=== PATIENT | male | born 1935 | race Caucasian/White ===

== ENCOUNTER 2016-12-28 07:40 | Outpatient (CLI) | payer MEDICARE, OTHER | END 2016-12-28 07:41 | DX: N18.9 Chronic kidney disease, unspecified (principal); I25.10 Atherosclerotic heart disease of native coronary artery without angina pectoris; I10 Essential (primary) hypertension; E78.5 Hyperlipidemia, unspecified; E55.9 Vitamin D deficiency, unspecified ==

== ENCOUNTER 2017-01-06 15:46 | Emergency (ER) | payer MEDICARE, OTHER | END 2017-01-06 19:28 | disposition home or self-care (01) | DX: R06.00 Dyspnea, unspecified (principal); I25.10 Atherosclerotic heart disease of native coronary artery without angina pectoris; Z98.61 Coronary angioplasty status; Z95.1 Presence of aortocoronary bypass graft; I10 Essential (primary) hypertension; E78.00 Pure hypercholesterolemia, unspecified; I48.91 Unspecified atrial fibrillation ==

== ENCOUNTER 2017-02-08 09:19 | Outpatient (CLI) | payer MEDICARE, OTHER | END 2017-02-08 09:20 | disposition home or self-care (01) | DX: Z12.5 Encounter for screening for malignant neoplasm of prostate (principal) | CPT/HCPCS: 36415; G0103 ==

== ENCOUNTER 2017-06-25 07:33 | Outpatient (CLI) | payer MEDICARE, OTHER ==
[2017-06-25 12:29] LABS: BASOPHILS % (AUTO) 0.5 %; EOSINOPHILS # (AUTO) 0.2 10^3/uL (0.0-0.7); EOSINOPHILS % (AUTO) 2.2 %; HCT - HEMATOCRIT 46.2 % (42.0-52.0); HGB - HEMOGLOBIN 15.6 g/dL (14.0-18.0); LYMPHOCYTES # (AUTO) 1.8 10^3/uL (1.5-3.5); LYMPHOCYTES % (AUTO) 23.1 %; MEAN CORPUSCULAR HEMOGLOBIN 30.4 pg (27.0-31.0); MEAN CORPUSCULAR HGB CONC 33.8 g/dL (32.0-36.0); MEAN CORPUSCULAR VOLUME 89.9 fL (80.0-94.0); MONOCYTES # (AUTO) 0.6 10^3/uL (0.0-1.0); NEUTROPHILS # (AUTO) 5.1 10^3/uL (1.5-6.6); NEUTROPHILS % (AUTO) 66.2 %; RED BLOOD COUNT 5.14 10^6/uL (4.70-6.10); RED CELL DISTRIBUTION WIDTH 14.4 % (12.0-15.0); UNCORRECTED WHITE BLOOD COUNT 7.7 x10^3/uL; WHITE BLOOD COUNT 7.7 x10^3/uL (4.8-10.8)
[2017-06-25 13:06] LABS: ALBUMIN/GLOBULIN RATIO 1.5 (1.0-2.2); BILIRUBIN,TOTAL 0.4 mg/dL (0.2-1.0); BUN - BLOOD UREA NITROGEN 17 mg/dL (6-20); CARBON DIOXIDE - CO2 22 mmol/L (21-32); CHLORIDE 106 mmol/L (101-111); CHOL/HDL RATIO 3.3 (<5.0); CHOLESTEROL 174 mg/dL; CREATININE 1.2 mg/dL (0.6-1.2); GFR - MDRD 58 (>89); GLUCOSE 102 mg/dL (70-100); HDL CHOLESTEROL 52 mg/dL; LDL/HDL RATIO 1.7 (<3.6); POTASSIUM 4.1 mmol/L (3.5-5.0); SODIUM 136 mmol/L (135-145); TOTAL PROTEIN 7.2 g/dL (6.7-8.2); TRIGLYCERIDES 160 mg/dL; VLDL CHOLESTEROL 32 mg/dL
== END 2017-06-25 07:34 ==
LOC: LAB.WCP 07:33
PROVIDERS: ATTEND Family Medicine
DX: E78.5 Hyperlipidemia, unspecified (principal); I25.10 Atherosclerotic heart disease of native coronary artery without angina pectoris
CPT/HCPCS: 36415; 80053; 80061; 85025

== ENCOUNTER 2017-10-04 09:27 | Outpatient (CLI) | payer MEDICARE, OTHER ==
[2017-10-04] MEDS ORDERED: REGADENOSON 0.4 MG/5 ML SYRINGE IVP ONE ×2 (10:20→13:51)
[2017-10-04 17:25] VITALS: BP 122/70
--- NOTE | 2017-10-05 01:38 | Nuclear Medicine Report ---
EXAM: SINGLE-ISOTOPE PHARMACOLOGICAL STRESS TEST WITH ADENOSINE. SINGLE-ISOTOPE AND SAME-DAY REST/STRESS MY OCARDIAL PERFUSION SCANS WITH TOMOGRAPHIC IMAGING, QUANTITATIVE ANALYSIS, WALL MOTION ANALYSIS AND CA LCULATION OF EJECTION FRACTION. EXAM DATE: 10/04/2017 02:36 PM. CLINICAL HISTORY: Chest pain. COMPARISON: None. TECHNIQUE: Following the intravenous administration of 10.1 mCi of Tc-99m sestamibi, a rest myocardia l perfusion scan was done with tomography. Motion correction was applied when appropriate. After a delay of several hours on the same day, a pharmacological stress was performed with the infus ion of 0.4 mg of adenosine. According to protocol, 42.6 mCi of Tc-99m sestamibi was injected for stre ss myocardial perfusion scan. Stress myocardial perfusion was done with tomography without attenuatio n correction. Motion correction was applied when appropriate. Gated tomographic images were obtained for wall motion analysis and computation of left ventricular ejection fraction. FINDINGS: Stress perfusion images demonstrate no fixed or reversible areas of ischemia. Resting wall motion analysis demonstrates normal wall motion. The left ventricular end-diastolic volume is 74 cc. The left ventricular end-systolic volume is 21 cc . The left ventricular ejection fraction is calculated to be 72%. IMPRESSION: 1. No scintigraphic findings to indicate myocardial ischemia. Negative for infarct. 2. Normal left ventricular ejection fraction of 72%. 3. Normal segmental and global wall motion. 4. Normal left ventricular cavity size, no change with stress. [facility] Referring Provider Line: [phone] SITE ID: [id number]
--- NOTE | 2017-10-05 03:38 | CARDIAC PROCEDURE NOTE ---
DATE OF SERVICE: 10/04/2017 00:00:00 [employer] OPERATOR: Shubham Cartwright M.D. PRIMARY CARE PHYSICIAN: Valente Interiano MD PROCEDURE: Pharmacologic stress test. PROCEDURE SYMPTOMS: Exertional chest pain. Previous cardiac procedures have been done. CLINICAL HISTORY: A 81-year-old male with known coronary artery disease. INITIAL RESTING VITAL SIGNS: Blood pressure 122/70, heart rate 66, height 67 inches, weight 185 pound s, BMI 29.0. PROCEDURE AND FINDINGS: The patient's identity and date verified, consent signed, safety stop. Pharmacologic stress testing was performed with Lexiscan at a dose of 0.4 mg over 10 seconds. The hea rt rate increased to 99 beats per minute from the infusion. Blood pressure response was normal during the stress procedure, dropping by 10 points. The patient developed mild infusion-related symptoms, w hich were described as anxiety. The resting ECG demonstrated normal sinus rhythm with a right bundle branch block. Maximum ST segment depression with stress was less than 0.5 mm and upsloping. There was occasional PAC and PVC ectopy. FINAL IMPRESSIONS 1. Negative electrocardiogram for ischemia in the setting of vasodilator stress. 2. Negative stress test for angina. 3. Ectopy is noted. DISCUSSION AND RECOMMENDATIONS: Await myocardial perfusion report. JOB #: [id number] EXT JOB #:[id number]
== END 2017-10-04 09:28 | disposition home or self-care (01) ==
LOC: DI 09:27
PROVIDERS: ATTEND Internal Medicine Cardiovascular Disease
DX: R07.9 Chest pain, unspecified (principal); I25.10 Atherosclerotic heart disease of native coronary artery without angina pectoris; I45.10 Unspecified right bundle-branch block
CPT/HCPCS: 78452; 93017; A9500; J2785

== ENCOUNTER 2017-12-25 07:57 | Outpatient (CLI) | payer MEDICARE, OTHER ==
[2017-12-25 13:30] LABS: ALBUMIN 4.1 g/dL (3.2-5.5); ALBUMIN/GLOBULIN RATIO 1.4 (1.0-2.2); ALKALINE PHOSPHATASE 55 IU/L (42-121); ALT ALANINE AMINOTRANSFERASE 21 IU/L (10-60); AST ASPARTATE AMINOTRANSFERASE 23 IU/L (10-42); BILIRUBIN,TOTAL 0.7 mg/dL (0.2-1.0); BUN - BLOOD UREA NITROGEN 16 mg/dL (6-20); CARBON DIOXIDE - CO2 26 mmol/L (21-32); CHLORIDE 103 mmol/L (101-111); CHOL/HDL RATIO 3.6 (<5.0); CHOLESTEROL 177 mg/dL; CREATININE 1.1 mg/dL (0.6-1.2); GFR - MDRD 64 (>89); GLUCOSE 100 mg/dL (70-100); HDL CHOLESTEROL 49 mg/dL; LDL CHOLESTEROL,CALCULATED 94 mg/dL; LDL/HDL RATIO 1.9 (<3.6); SODIUM 136 mmol/L (135-145); VLDL CHOLESTEROL 34 mg/dL
== END 2017-12-25 07:58 | disposition home or self-care (01) ==
LOC: LAB.WCP 07:57
PROVIDERS: ATTEND Family Medicine
DX: I10 Essential (primary) hypertension (principal); N18.9 Chronic kidney disease, unspecified; E78.5 Hyperlipidemia, unspecified; E55.9 Vitamin D deficiency, unspecified; I25.10 Atherosclerotic heart disease of native coronary artery without angina pectoris
CPT/HCPCS: 36415; 80053; 80061; 82306; 83721

== ENCOUNTER 2018-05-27 07:58 | Outpatient (CLI) | payer MEDICARE, OTHER ==
[2018-05-27 13:06] LABS: BASOPHILS % (AUTO) 0.5 %; EOSINOPHILS # (AUTO) 0.2 10^3/uL (0.0-0.7); EOSINOPHILS % (AUTO) 2.4 %; HGB - HEMOGLOBIN 15.3 g/dL (14.0-18.0); LYMPHOCYTES # (AUTO) 1.6 10^3/uL (1.5-3.5); LYMPHOCYTES % (AUTO) 22.6 %; MEAN CORPUSCULAR HEMOGLOBIN 31.1 pg (27.0-31.0); MEAN CORPUSCULAR HGB CONC 33.7 g/dL (32.0-36.0); MEAN CORPUSCULAR VOLUME 92.2 fL (80.0-94.0); MEAN PLATELET VOLUME 7.9 fL (7.4-11.4); MONOCYTES # (AUTO) 0.6 10^3/uL (0.0-1.0); MONOCYTES % (AUTO) 8.1 %; NEUTROPHILS # (AUTO) 4.8 10^3/uL (1.5-6.6); NEUTROPHILS % (AUTO) 66.4 %; PLT - PLATELET COUNT 340 10^3/uL (130-450); RED BLOOD COUNT 4.92 10^6/uL (4.70-6.10); RED CELL DISTRIBUTION WIDTH 13.9 % (12.0-15.0); WHITE BLOOD COUNT 7.2 x10^3/uL (4.8-10.8)
[2018-05-27 13:39] LABS: ALBUMIN 4.1 g/dL (3.2-5.5); ALBUMIN/GLOBULIN RATIO 1.4 (1.0-2.2); ALKALINE PHOSPHATASE 53 IU/L (42-121); ALT ALANINE AMINOTRANSFERASE 17 IU/L (10-60); AST ASPARTATE AMINOTRANSFERASE 22 IU/L (10-42); BILIRUBIN,TOTAL 0.8 mg/dL (0.2-1.0); BUN - BLOOD UREA NITROGEN 19 mg/dL (6-20); CALCIUM 8.9 mg/dL (8.5-10.3); CARBON DIOXIDE - CO2 24 mmol/L (21-32); CHLORIDE 104 mmol/L (101-111); CHOL/HDL RATIO 2.9 (<5.0); CHOLESTEROL 153 mg/dL; CREATININE 1.1 mg/dL (0.6-1.2); GFR - MDRD 64 (>89); GLUCOSE 91 mg/dL (70-100); HDL CHOLESTEROL 52 mg/dL; LDL CHOLESTEROL,CALCULATED 77 mg/dL; LDL/HDL RATIO 1.5 (<3.6); SODIUM 137 mmol/L (135-145); VLDL CHOLESTEROL 24 mg/dL
[2018-05-27 14:42] LABS: PLATELET ESTIMATE, MANUAL NORMAL (130-450,000) (NORMAL); PLATELET MORPHOLOGY NORMAL APPEARANCE (NORMAL); RBC MORPHOLOGY (MULTIPLE) NORMAL APPEARANCE (NORMAL)
== END 2018-05-27 07:59 | disposition home or self-care (01) ==
LOC: LAB.WCP 07:58
PROVIDERS: ATTEND Family Medicine
DX: E78.5 Hyperlipidemia, unspecified (principal); I10 Essential (primary) hypertension
CPT/HCPCS: 36415; 80053; 80061; 83721; 85025

== ENCOUNTER 2018-09-12 06:02 | Day surgery (SDC) | payer MEDICARE, OTHER ==
[2018-09-12] MEDS ORDERED: PROPARACAINE 0.5% OPHTH DROPS 15 ML ONE (06:25)
[2018-09-12] MEDS ORDERED: PHENYLEPHRINE 2.5% OPHTH 2 ML DROPS ONE (06:25)
[2018-09-12] MEDS ORDERED: CYCLOPENTOLATE 1% OPHTH DROPS 2 ML ONE (06:25)
[2018-09-12] MEDS ORDERED: KETOROLAC 0.45% OPHTH DROPS ONE (06:25)
[2018-09-12] MEDS ORDERED: PHENYLEPHRINE 2.5% OPHTH 2 ML DROPS RIGHTEYE ONE (06:40)
[2018-09-12] MEDS ORDERED: KETOROLAC 0.45% OPHTH DROPS RIGHTEYE ONE (06:40)
[2018-09-12] MEDS ORDERED: PROPARACAINE 0.5% OPHTH DROPS 15 ML RIGHTEYE ONE ×2 (06:40→07:38)
[2018-09-12] MEDS ORDERED: CYCLOPENTOLATE 1% OPHTH DROPS 2 ML RIGHTEYE ONE (06:40)
[2018-09-12] MEDS ORDERED: LACTATED RINGERS 500 ML IV ONE (06:46)
[2018-09-12] MEDS ORDERED: EPINEPHrine 1 MG/ML AMP ONE (06:57)
[2018-09-12] MEDS ORDERED: TRIAMCIN/MOXIFLOX OPHTHALMIC 0.6 ML VIAL IO ONE (06:57)
[2018-09-12] MEDS ORDERED: BSS/LIDOCAINE/EPINEPHRINE 1 ML SYRINGE ONE (06:58)
[2018-09-12] MEDS ORDERED: BRIMONIDINE 0.2% OPHTH DROPS 5 ML ONE (06:58)
[2018-09-12] MEDS ORDERED: VANCOMYCIN OPHTHALMI 8MG/0.8ML 8 MG/0.8 ML SYRINGE IO ONE (06:58)
[2018-09-12] MEDS ORDERED: TIMOLOL 0.5% OPHTH DROPS ONE (06:58)
--- NOTE | 2018-09-12 07:20 | ANESTHESIA ---
Pre-Anesthesia VS, & Labs - Diagnosis Right senile combined cataract - Procedure Right phaco with IOL implant Vital Signs: Temp Pulse Resp BP Pulse Ox 35.9 C L 52 L 16 138/72 H 95 09/12/18 06:36 09/12/18 06:36 09/12/18 06:36 09/12/18 06:36 09/12/18 06:36 Height 5 ft 5 in Weight (kg) 87.2 kg Body Mass Index 29.0 - NPO >8 hours Home Medications and Allergies Aspirin 81 mg PO QAM 09/03/13 Folic Acid/Mv,Fe,Min [Centrum Chewable Tablet] 1 each PO QAM 09/03/13 Acetaminophen [Tylenol] 650 mg PO Q6H PRN 07/28/14 Atenolol 20 mg PO DAILY 07/28/14 Cetirizine [ZyrTEC] 20 mg PO DAILY 01/26/16 Ipratropium Aurora 0.03 mg IH QID 01/26/16 Simvastatin 40 mg PO DAILY 01/26/16 Allergies/Adverse Reactions: Allergies Allergy/AdvReac Type Severity Reaction Status Date / Time ciprofloxacin Allergy FLUSHING/RA Verified 01/06/17 15:55 SH NSAIDS (Non-Steroidal Allergy KIDNEY Verified 01/06/17 15:56 Anti-Inflamma FAILURE naproxen sodium * AdvReac Severe Hives Verified 01/06/17 15:56 [From Aleve] prednisone AdvReac Severe Hallucinati Verified 01/06/17 15:56 ons Penicillins AdvReac Rash Verified 01/06/17 15:56 CHG 2% AdvReac Rash Uncoded 01/06/17 15:55 Anes History & Medical History - Anesthetic History Anesthesia Complications: reports: No previous complications Family history of Anesthesia Complications: Denies Family history of Malignant Hyperthermia: Denies - Medical History Cardiovascular: reports: Hypertension, High cholesterol, Coronary artery disease, Atrial fibrillation Pulmonary: reports: None, Sleep apnea Gastrointestinal: reports: Colon polyps Urinary: reports: Benign prostate hypertrophy, Other Neuro: reports: None Musculoskeletal: reports: Osteoarthritis, Chronic back pain Endocrine/Autoimmune: reports: None Blood Disorders: reports: None Skin: reports: None, Other Smoking Status: Current every day smoker Psychosocial: reports: No issues indicated - Surgical History General: Cholecystectomy, Appendectomy, Hiatal hernia repair, Colonoscopy, Other Cardiothoracic: CABG, Coronary stent, Angioplasty Orthopedic: Rotator cuff repair, Shoulder arthroplasty, Other Dermatologic: Other Exam General: Alert Dental: Other (edentulous) Mouth Opening: Greater than 4 Fingerbreadths Neck Mobility: Normal Mallampati classification: II Thyromental Distance: greater than 6 cm Respiratory: Lungs clear Cardiovascular: Regular rate Mental/Cognitive Status: Alert/Oriented X3 Cognitive Status: Within normal limits Plan Anesthesia Type: MAC Consent for Procedure(s) Verified and Reviewed: Yes Code Status: Attempt Resuscitation ASA classification: 3-Severe systemic disease Is this case an emergency?: No
[2018-09-12] MEDS ORDERED: BRIMONIDINE 0.2% OPHTH DROPS 5 ML OPTH ONE (07:44)
[2018-09-12] MEDS ORDERED: EPINEPHrine 1 MG/ML AMP IVP ONE (07:45)
[2018-09-12] MEDS ORDERED: CHONDR SULF/HYALURONATE SYRINGE IO ONE (07:45)
[2018-09-12] MEDS ORDERED: TIMOLOL 0.5% OPHTH DROPS OPTH ONE (07:46)
[2018-09-12] MEDS ORDERED: BSS/LIDOCAINE/EPINEPHRINE 1 ML SYRINGE IO ONE ×2 (07:46)
[2018-09-12] MEDS ORDERED: LIDOCAINE-MPF 2% 5 ML VIAL IM ONE (08:00)
[2018-09-12] MEDS ORDERED: MIDAZOLAM 2 MG/2 ML VIAL IVP ONE (08:00)
[2018-09-12 08:30] VITALS: BP 135/63
--- NOTE | 2018-09-12 09:54 | OPERATIVE REPORT ---
DATE OF SERVICE: 09/12/2018 Physician: Sawyer Edwards MD PREOPERATIVE DIAGNOSIS: Complex, visually significant cataract, right eye. Complex due to small pupil requiring mechanical pupillary expansion with a Malyugin Ring. This was his first cataract surgery. POSTOPERATIVE DIAGNOSIS: Complex, visually significant cataract, right eye. Complex due to small pupil requiring mechanical pupillary expansion with a Malyugin Ring. This was his first cataract surgery. PROCEDURE: Phacoemulsification with posterior chamber intraocular lens implant, right eye. SURGEON: Dr. Sawyer Edwards. ANESTHESIA: Monitored anesthesia care. COMPLICATIONS: None. OPERATIVE INDICATIONS: This is an 82-year-old man with progressive vision loss in the right eye due to 3 to 4+ nuclear sclerotic cataract. Best corrected visual acuity was 20/40 with glare to 20/100 in the right eye. Indications for surgery were overall decrease in vision, difficulty driving in low light or at night, and difficulty driving at night because of headlights from other vehicles and/or street lights. He was consented at length concerning the risks and benefits of cataract surgery, after which he expressed a desire to proceed with surgery. OPERATIVE PROCEDURE: The patient was taken into OR #3 and placed under monitored anesthesia care. A surgical timeout was conducted confirming correct patient, correct procedure, and correct surgical site. He was given topical anesthesia and prepped and draped in the usual sterile fashion. The eye was entered at the 12 and 9-o'clock positions. Intracameral Shugarcaine was injected into the anterior chamber, followed by Viscoat. Due to less than optimal pupil dilation it was decided to use a Malyugin Ring to mechanically expand the pupil. A 7mm ring was injected into the anterior chamber and engaged the pupil at four points. A continuous-tear curvilinear capsulorrhexis was then performed. Of note, this patient was heavily sedated but was moving excessively, reaching up to his eyes and turning his head to the left, but it was elected not to put him under general because of his cardiac risk. The nucleus was hydrodissected and phacoemulsified. The cortex was evacuated using automated infusion and aspiration (I&A). Provisc was injected in the capsular bag, and a 16.0-diopter intraocular lens inserted in the bag. The Malyugin Ring was then disengaged from the pupillary margin and removed from the anterior chamber. I&A was used to evacuate the viscoelastic materials. Approximately 0.8 mL of a mixture of triamcinolone, moxifloxacin, and vancomycin was injected subconjunctivally in the superior quadrant for infection and inflammation prophylaxis. The eye was inflated to physiologic pressure using a balanced salt solution and found to be watertight. Patient was taken from the operating room in good condition and given postop instructions. TD: 09/12/2018 08:17 ABHAY
== END 2018-09-12 06:03 | disposition home or self-care (01) ==
LOC: SDS 06:02
PROVIDERS: ATTEND Ophthalmology
PROC: 08RJ3JZ Replacement of Right Lens with Synthetic Substitute, Percutaneous Approach (ICD-10-PCS; principal; 2018-09-12 07:30)
DX: H25.11 Age-related nuclear cataract, right eye (principal); I10 Essential (primary) hypertension; H91.90 Unspecified hearing loss, unspecified ear; E78.00 Pure hypercholesterolemia, unspecified; I25.10 Atherosclerotic heart disease of native coronary artery without angina pectoris; I48.91 Unspecified atrial fibrillation; F17.200 Nicotine dependence, unspecified, uncomplicated; Z95.1 Presence of aortocoronary bypass graft; Z95.5 Presence of coronary angioplasty implant and graft
CPT/HCPCS: 66982; A9270; J3490; V2632

== ENCOUNTER 2018-12-26 06:34 | Day surgery (SDC) | payer MEDICARE, OTHER ==
[2018-12-26] MEDS ORDERED: KETOROLAC 0.45% OPHTH DROPS ONE (06:45)
[2018-12-26] MEDS ORDERED: PHENYLEPHRINE 2.5% OPHTH 2 ML DROPS ONE (06:45)
[2018-12-26] MEDS ORDERED: CYCLOPENTOLATE 1% OPHTH DROPS 2 ML ONE (06:45)
[2018-12-26] MEDS ORDERED: PROPARACAINE 0.5% OPHTH DROPS 15 ML ONE (06:46)
[2018-12-26] MEDS ORDERED: LACTATED RINGERS 500 ML IV ONE (06:58)
[2018-12-26] MEDS ORDERED: PHENYLEPHRINE 2.5% OPHTH 2 ML DROPS LEFTEYE ONE (07:00)
[2018-12-26] MEDS ORDERED: KETOROLAC 0.45% OPHTH DROPS LEFTEYE ONE (07:00)
[2018-12-26] MEDS ORDERED: CYCLOPENTOLATE 1% OPHTH DROPS 2 ML LEFTEYE ONE (07:00)
[2018-12-26] MEDS ORDERED: PROPARACAINE 0.5% OPHTH DROPS 15 ML LEFTEYE ONE ×2 (07:00→08:21)
[2018-12-26] MEDS ORDERED: EPINEPHrine 1 MG/ML AMP ONE (07:11)
[2018-12-26] MEDS ORDERED: BSS/LIDOCAINE/EPINEPHRINE 1 ML SYRINGE ONE (07:11)
[2018-12-26] MEDS ORDERED: VANCOMYCIN OPHTHALMI 8MG/0.8ML 8 MG/0.8 ML SYRINGE IO ONE ×2 (07:11→08:29)
[2018-12-26] MEDS ORDERED: BRIMONIDINE 0.2% OPHTH DROPS 5 ML ONE (07:11)
[2018-12-26] MEDS ORDERED: TIMOLOL 0.5% OPHTH DROPS ONE (07:11)
[2018-12-26] MEDS ORDERED: TRIAMCIN/MOXIFLOX OPHTHALMIC 0.6 ML VIAL IO ONE ×2 (07:11→08:30)
--- NOTE | 2018-12-26 07:49 | ANESTHESIA ---
Pre-Anesthesia VS, & Labs - Diagnosis Nuclear sclerotic cataract left eye - Procedure cataract extraction with probable intraocular lens implant left eye Vital Signs: Temp Pulse Resp BP Pulse Ox 36.0 C L 53 L 18 127/80 99 12/26/18 07:01 12/26/18 07:01 12/26/18 07:01 12/26/18 07:01 12/26/18 07:01 Height 5 ft 8 in Weight (kg) 88 kg Body Mass Index 29.0 - NPO >8 hours Home Medications and Allergies Aspirin 81 mg PO QAM 09/03/13 Multivit-Min/Iron/Folic/Vit K1 [Centrum Chewable Tablet] 1 each PO QAM 09/03/13 Acetaminophen [Tylenol] 650 mg PO Q6H PRN 07/28/14 Atenolol 20 mg PO DAILY 07/28/14 Cetirizine [ZyrTEC] 20 mg PO DAILY 01/26/16 Ipratropium Vivian 0.03 mg IH QID 01/26/16 Simvastatin 40 mg PO DAILY 01/26/16 Allergies/Adverse Reactions: Allergies Allergy/AdvReac Type Severity Reaction Status Date / Time ciprofloxacin Allergy FLUSHING/RA Verified 12/26/18 07:00 SH NSAIDS (Non-Steroidal Allergy KIDNEY Verified 12/26/18 07:00 Anti-Inflamma FAILURE naproxen sodium * AdvReac Severe Hives Verified 12/26/18 07:00 [From Aleve] prednisone AdvReac Severe Hallucinati Verified 12/26/18 07:00 ons Penicillins AdvReac Rash Verified 12/26/18 07:00 CHG 2% AdvReac Rash Uncoded 12/26/18 07:00 Anes History & Medical History - Anesthetic History Anesthesia Complications: reports: No previous complications - Medical History Cardiovascular: reports: Hypertension, High cholesterol, Coronary artery disease, Atrial fibrillation Pulmonary: reports: None, Sleep apnea Gastrointestinal: reports: Colon polyps Urinary: reports: Benign prostate hypertrophy, Other Neuro: reports: None Musculoskeletal: reports: Osteoarthritis, Chronic back pain Endocrine/Autoimmune: reports: None Blood Disorders: reports: None Skin: reports: None, Other Smoking Status: Current every day smoker Psychosocial: reports: No issues indicated - Surgical History General: Cholecystectomy, Appendectomy, Hiatal hernia repair, Colonoscopy, Other Eyes Ears Nose Throat (EENT): Cataracts Cardiothoracic: CABG, Coronary stent, Angioplasty Orthopedic: Rotator cuff repair, Shoulder arthroplasty, Other Dermatologic: Other Exam General: Alert, Oriented x3, Cooperative Dental: WNL Mouth Openin Fingerbreadth Neck Mobility: Normal Mallampati classification: II Thyromental Distance: 4-6 cm Respiratory: Lungs clear, Normal breath sounds, No respiratory distress, No accessory muscle use Cardiovascular: Regular rate, Normal S1, Normal S2, No murmurs Mental/Cognitive Status: Alert/Oriented X3, Normal for patient Plan Anesthesia Type: MAC Consent for Procedure(s) Verified and Reviewed: Yes Code Status: Attempt Resuscitation ASA classification: 3-Severe systemic disease Is this case an emergency?: No
[2018-12-26] MEDS ORDERED: BRIMONIDINE 0.2% OPHTH DROPS 5 ML OPTH ONE (08:13)
[2018-12-26] MEDS ORDERED: EPINEPHrine 1 MG/ML AMP IVP ONE (08:14)
[2018-12-26] MEDS ORDERED: TIMOLOL 0.5% OPHTH DROPS OPTH ONE (08:14)
[2018-12-26] MEDS ORDERED: CHONDR SULF/HYALURONATE SYRINGE IO ONE (08:14)
[2018-12-26] MEDS ORDERED: BSS/LIDOCAINE/EPINEPHRINE 1 ML SYRINGE IO ONE (08:21)
[2018-12-26] MEDS ORDERED: PROPOFOL 200 MG/20 ML VIAL IVP ONE (08:30)
[2018-12-26] MEDS ORDERED: LIDOCAINE-MPF 2% 5 ML VIAL IM ONE (08:30)
[2018-12-26] MEDS ORDERED: MIDAZOLAM 2 MG/2 ML VIAL IVP ONE (08:30)
[2018-12-26] MEDS ORDERED: LACTATED RINGERS 1,000 ML IV ONE (08:42)
--- NOTE | 2018-12-26 09:27 | OPERATIVE REPORT ---
DATE OF SERVICE: 12/26/2018 Physician: Sawyer Edwards MD PREOPERATIVE DIAGNOSIS: Complex visually significant cataract, left eye; complex due to poor pupil dilation, requiring Malyugin ring for pupil expansion. Cataract surgery was performed on the right eye on 09/12/2018. POSTOPERATIVE DIAGNOSIS: Complex visually significant cataract, left eye; complex due to poor pupil dilation, requiring Malyugin ring for pupil expansion. PROCEDURE: Phacoemulsification with posterior chamber intraocular lens implant, left eye. SURGEON: Dr. Sawyer Edwards. ANESTHESIA: Started with monitored anesthesia care. About jail through the procedure, had to convert to general anesthesia due to sudden and severe patient movements, uncontrollable. COMPLICATIONS: None. OPERATIVE INDICATIONS: This is an 83-year-old man with progressive vision loss in the left eye due to a 2 to 3+ nuclear sclerotic cataract. Best corrected visual acuity was 20/25 with glare to 20/60 in the left eye. Indications for surgery were overall decrease in vision, difficulty seeing words, closed captions or games scores on TV, difficulty driving at night because of headlights from other vehicles, and difficulty with glare or bright lights in any situation. He was consented at length concerning risks and benefits of cataract surgery, after which he expressed a desire to proceed with surgery. OPERATIVE PROCEDURE: Patient was taken into OR #3 and placed under monitored anesthesia care. A surgical timeout was conducted confirming correct patient, correct procedure, and correct surgical site. He was given topical anesthesia, then prepped and draped in the usual sterile fashion. The eye was entered at the 6 and 3-o'clock positions. Intracameral Shugarcaine was injected into the anterior chamber, followed by Viscoat. Because of poor dilation, a Malyugin Ring was injected into the anterior chamber and engaged the pupillary margin at 4 points in order to expand the pupil. A continuous-tear curvilinear capsulorrhexis was performed. The patient kept making sudden and profound head movements, and despite several attempt to further sedate the patient, it was elected to convert his anesthesia to general anesthesia with LMA. The nucleus was then hydrodissected and phacoemulsified. The cortex was evacuated using automated infusion and aspiration (I&A). Provisc was injected in the capsular bag and a 16.5-diopter intraocular lens inserted in the bag. Approximately 0.8 mL of a mixture of triamcinolone, moxifloxacin and vancomycin was injected subconjunctivally in the superior quadrant for infection and inflammation prophylaxis. The Malyugin ring inserted earlier to expand the pupil was disengaged from the pupil margin and removed from the anterior chamber. I and A was used to evacuate the viscoelastic materials. The eye was inflated to physiologic pressure using a balanced salt solution and found to be watertight. Patient was taken from the operating room in good condition and given postop instructions. TD: 12/26/2018 08:51 ABHAY
[2018-12-26 09:40] VITALS: BP 117/64
== END 2018-12-26 06:35 | disposition home or self-care (01) ==
LOC: SDS 06:34
PROVIDERS: ATTEND Ophthalmology
PROC: 08RK3JZ Replacement of Left Lens with Synthetic Substitute, Percutaneous Approach (ICD-10-PCS; principal; 2018-12-26 08:00)
DX: H25.12 Age-related nuclear cataract, left eye (principal); I25.10 Atherosclerotic heart disease of native coronary artery without angina pectoris; I10 Essential (primary) hypertension; I48.91 Unspecified atrial fibrillation; G47.30 Sleep apnea, unspecified; N40.0 Benign prostatic hyperplasia without lower urinary tract symptoms; F17.210 Nicotine dependence, cigarettes, uncomplicated
CPT/HCPCS: 66982; A9270; J3490; J7120; V2632

== ENCOUNTER 2019-01-09 08:00 | Outpatient (CLI) | payer MEDICARE, OTHER ==
[2019-01-09 14:14] LABS: ALBUMIN 4.2 g/dL (3.2-5.5); ALBUMIN/GLOBULIN RATIO 1.4 (1.0-2.2); ALKALINE PHOSPHATASE 68 IU/L (42-121); ALT ALANINE AMINOTRANSFERASE 21 IU/L (10-60); AST ASPARTATE AMINOTRANSFERASE 24 IU/L (10-42); BILIRUBIN,TOTAL 0.5 mg/dL (0.2-1.0); BUN - BLOOD UREA NITROGEN 21 mg/dL (6-20); CALCIUM 9.5 mg/dL (8.5-10.3); CARBON DIOXIDE - CO2 27 mmol/L (21-32); CHLORIDE 104 mmol/L (101-111); CHOL/HDL RATIO 3.4 (<5.0); CHOLESTEROL 174 mg/dL; CREATININE 1.2 mg/dL (0.6-1.2); GFR - MDRD 58 (>89); GLUCOSE 100 mg/dL (70-100); HDL CHOLESTEROL 51 mg/dL; LDL CHOLESTEROL,CALCULATED 95 mg/dL; LDL/HDL RATIO 1.9 (<3.6); SODIUM 138 mmol/L (135-145); TOTAL PROTEIN 7.3 g/dL (6.7-8.2); VLDL CHOLESTEROL 28 mg/dL
== END 2019-01-09 23:59 ==
LOC: LAB.WCP 08:00
PROVIDERS: ATTEND Family Medicine
DX: I12.9 Hypertensive chronic kidney disease with stage 1 through stage 4 chronic kidney disease, or unspecified chronic kidney disease (principal); N18.9 Chronic kidney disease, unspecified; Z12.5 Encounter for screening for malignant neoplasm of prostate; E78.5 Hyperlipidemia, unspecified; I25.10 Atherosclerotic heart disease of native coronary artery without angina pectoris
CPT/HCPCS: 36415; 80053; 80061; 84443; G0103; 83721; 84153

== ENCOUNTER 2019-08-05 04:22 | Emergency (ER) | payer MEDICARE, OTHER ==
[2019-08-05 04:29] VITALS: BP 167/64
[2019-08-05] MEDS ORDERED: MUPIROCIN 2% OINT 1 GM TOP STA (04:43)
--- NOTE | 2019-08-05 04:46 | ED Physician Documentation ---
History of Present Illness - Stated complaint Stated Complaint: THUMB PX - Chief complaint Chief Complaint: Ext Problem - History obtained from History obtained from: Patient - History of Present Illness Timing: Yesterday Severity Comments: mild redness and pain to the L thumb near his finger nail Quality: aching Radiates to: none Improved by: nothing Worsened by: palpating Associated symptoms: no fever - Treatment prior to arrival Treatment prior to arrival: none - Additonal information Additional information: He denies any injury to the area. Reports swelling and increased redness around his fingernail. [ End ] Review of Systems Ten Systems: 10 systems reviewed and negative Constitutional: denies: Fever Cardiac: reports: Reviewed and negative Respiratory: reports: Reviewed and negative GI: reports: Reviewed and negative Skin: denies: Rash, Lesions, Abrasion (s), Laceration (s), Bite / sting Musculoskeletal: reports: Joint pain, Joint swelling Neurologic: denies: Focal weakness, Numbness Immunocompromised: reports: Reviewed and negative PD PAST MEDICAL HISTORY - Past Medical History Past Medical History: Yes Cardiovascular: Hypertension, High cholesterol, Coronary artery disease, Atrial fibrillation Respiratory: None, Sleep apnea Neuro: None Endocrine/Autoimmune: None GI: Colon polyps : Benign prostate hypertrophy, Other HEENT: Chronic hearing loss, Other Psych: Claustrophobia Musculoskeletal: Osteoarthritis, Chronic back pain Derm: None, Other - Past Surgical History Past Surgical History: Yes General: Cholecystectomy, Appendectomy, Hiatal hernia repair, Colonoscopy, Other Ortho: Rotator cuff repair, Shoulder arthroplasty, Other Cardiovascular: CABG, Coronary stent, Angioplasty HEENT: Cataracts Derm: Other - Present Medications Home Medications: Ambulatory Orders Medication Instructions Recorded Confirmed Aspirin 81 mg PO QAM 09/03/13 12/26/18 Multivit-Min/Iron/Folic/Vit K1 1 each PO QAM 09/03/13 12/26/18 [Centrum Chewable Tablet] Acetaminophen [Tylenol] 650 mg PO Q6H PRN 07/28/14 12/26/18 Atenolol 20 mg PO DAILY 07/28/14 12/26/18 Cetirizine [ZyrTEC] 20 mg PO DAILY 01/26/16 12/26/18 Ipratropium Ransom 0.03 mg IH QID 01/26/16 12/26/18 Simvastatin 40 mg PO DAILY 01/26/16 12/25/18 Mupirocin Calcium [Mupirocin] 15 gm TP TID 7 Days #1 cream..g. 08/05/19 - Allergies Allergies/Adverse Reactions: Allergies Allergy/AdvReac Type Severity Reaction Status Date / Time ciprofloxacin Allergy FLUSHING/RA Verified 12/26/18 07:00 SH NSAIDS (Non-Steroidal Allergy KIDNEY Verified 12/26/18 07:00 Anti-Inflamma FAILURE naproxen sodium * AdvReac Severe Hives Verified 12/26/18 07:00 [From Aleve] prednisone AdvReac Severe Hallucinati Verified 12/26/18 07:00 ons Penicillins AdvReac Rash Verified 12/26/18 07:00 CHG 2% AdvReac Rash Uncoded 12/26/18 07:00 - Social History Does the pt smoke?: No Smoking Status: Never smoker Does the pt drink ETOH?: No Does the pt have substance abuse?: No - Immunizations Immunizations are current?: Yes - POLST Patient has POLST: No PD ED PE NORMAL - Vitals Vital signs reviewed: Yes - General General: Alert and oriented X 3, No acute distress, Well developed/nourished - HEENT HEENT: Atraumatic, Pharynx benign - Neck Neck: Supple, no meningeal sign - Cardiac Cardiac: RRR - Respiratory Respiratory: No respiratory distress - Abdomen Abdomen: Non distended - Male Male : Deferred - Rectal Rectal: Deferred - Derm Derm: Warm and dry, No rash - Extremities Extremities: No deformity, Normal ROM s pain, No calf tenderness / cord - Neuro Neuro: Alert and oriented X 3, No motor deficit, No sensory deficit Eye Opening: Spontaneous Motor: Obeys Commands Verbal: Oriented GCS Score: 15 - Psych Psych: Normal mood, Normal affect PD ED PE EXPANDED - Derm Derm: Other (mild erythema around base of L thumb nailbed, mild swelling, no palpable abscess) - Extremities Extremities: Tenderness (mild over L thumb nailbed edge), Swelling (very mild over L thumb nailbed). No: Deformity, Limited ROM Results - Vitals Vitals: Vital Signs - 24 hr 08/05/19 04:25 Temperature 36.6 C Heart Rate 64 Respiratory 16 Rate Blood Pressure 167/64 H O2 Saturation 96 Oxygen O2 Source Room air PD MEDICAL DECISION MAKING - ED course Complexity details: considered differential, d/w patient ED course: ddx- mi [place], finger abscess 83 y/o M with very mild paronychia of his L thumb. will give trial of topical antibiotics. advised pt to use warm soaks and f/u with PCP for recheck. Given return precautions in case of severe pain, fever or new concerning symptoms. Departure - Departure Disposition: 01 Home, Self Care Clinical Impression: Paronychia Condition: Stable Record reviewed to determine appropriate education?: Yes Instructions: ED Fingernail Infec Follow-Up: Fabrizio Thorne MD [Primary Care Provider] - Within 1 week (recheck your finger) Prescriptions: Mupirocin Calcium [Mupirocin] 15 gm TP TID 7 Days #1 cream..g. Comments: You appear to have a mild paronychia which is an infection of your fingernail. Apply warm compresses, soaks and elevate the finger. Apply the prescribed ointment three times a day for 7 days. If worsening symptoms return to the ED. Discharge Date/Time: 08/05/19 04:51
== END 2019-08-05 04:51 | disposition home or self-care (01) ==
LOC: ED 04:22
DX: L03.012 Cellulitis of left finger (principal); I10 Essential (primary) hypertension; Z79.82 Long term (current) use of aspirin
CPT/HCPCS: 99282; 99284; A9270

== ENCOUNTER 2019-08-06 08:54 | Emergency (ER) | payer MEDICARE, OTHER ==
[2019-08-06 09:13] VITALS: BP 140/69
[2019-08-06] MEDS ORDERED: cefTRIAXone 1 GM VIAL IM STA (09:43)
[2019-08-06] MEDS ORDERED: LIDOCAINE 1% 2 ML VIAL MC ONE (09:43)
--- NOTE | 2019-08-06 09:44 | ED Physician Documentation ---
History of Present Illness - Stated complaint Stated Complaint: THUMB PX - Chief complaint Chief Complaint: Ext Problem - History obtained from History obtained from: Patient - History of Present Illness Timing: How many days ago (3) - Additonal information Additional information: 83-year-old male has had some redness around his left thumb and he was seen here in the emergency department yesterday morning early and given mupirocin for a paronychia. He did not fill the prescription and he has worsening of his symptoms over the next 24 hours. He is come back into the emergency department wanting more aggressive treatment.He has a missing section of left index finger and he is concerned about losing his thumb. Review of Systems Constitutional: denies: Fever Eyes: denies: Decreased vision Ears: denies: Ear pain Nose: denies: Congestion Throat: denies: Sore throat Respiratory: denies: Cough GI: denies: Vomiting, Diarrhea : denies: Dysuria Musculoskeletal: denies: Neck pain, Back pain, Extremity pain Neurologic: denies: Generalized weakness, Focal weakness, Numbness PD PAST MEDICAL HISTORY - Past Medical History Cardiovascular: Hypertension, High cholesterol, Coronary artery disease, Atrial fibrillation Respiratory: None, Sleep apnea Neuro: None Endocrine/Autoimmune: None GI: Colon polyps : Benign prostate hypertrophy, Other HEENT: Chronic hearing loss, Other Psych: Claustrophobia Musculoskeletal: Osteoarthritis, Chronic back pain Derm: None, Other - Past Surgical History Past Surgical History: Yes General: Cholecystectomy, Appendectomy, Hiatal hernia repair, Colonoscopy, Other Ortho: Rotator cuff repair, Shoulder arthroplasty, Other Cardiovascular: CABG, Coronary stent, Angioplasty HEENT: Cataracts Derm: Other - Present Medications Home Medications: Ambulatory Orders Medication Instructions Recorded Confirmed Aspirin 81 mg PO QAM 09/03/13 12/26/18 Multivit-Min/Iron/Folic/Vit K1 1 each PO QAM 09/03/13 12/26/18 [Centrum Chewable Tablet] Acetaminophen [Tylenol] 650 mg PO Q6H PRN 07/28/14 12/26/18 Atenolol 20 mg PO DAILY 07/28/14 12/26/18 Cetirizine [ZyrTEC] 20 mg PO DAILY 01/26/16 12/26/18 Ipratropium [place] 0.03 mg IH QID 01/26/16 12/26/18 Simvastatin 40 mg PO DAILY 01/26/16 12/25/18 Mupirocin Calcium [Mupirocin] 15 gm TP TID 7 Days #1 cream..g. 08/05/19 Sulfamethoxazole/Trimethoprim 1 each PO BID #14 tablet 08/06/19 [Sulfamethoxazole-Tmp Ds Tablet] - Allergies Allergies/Adverse Reactions: Allergies Allergy/AdvReac Type Severity Reaction Status Date / Time ciprofloxacin Allergy FLUSHING/RA Verified 08/06/19 09:09 SH NSAIDS (Non-Steroidal Allergy KIDNEY Verified 08/06/19 09:09 Anti-Inflamma FAILURE naproxen sodium * AdvReac Severe Hives Verified 08/06/19 09:09 [From Aleve] prednisone AdvReac Severe Hallucinati Verified 08/06/19 09:09 ons Penicillins AdvReac Rash Verified 08/06/19 09:09 CHG 2% AdvReac Rash Uncoded 12/26/18 07:00 - Social History Does the pt smoke?: No Smoking Status: Never smoker Does the pt drink ETOH?: No Does the pt have substance abuse?: No - Immunizations Immunizations are current?: Yes - POLST Patient has POLST: No PD ED PE NORMAL - Vitals Vital signs reviewed: Yes (hypertensive ) - General General: Alert and oriented X 3, No acute distress, Well developed/nourished - HEENT HEENT: Atraumatic, PERRL, EOMI - Respiratory Respiratory: No respiratory distress - Derm Derm: Normal color, Warm and dry - Extremities Extremities: No deformity, Other (There is swelling and erythema to the cuticle of the left thumb without fluctuance but with extension of erythema to the IP joint. There is no lymphangitic streaking. ) - Neuro Neuro: Alert and oriented X 3, manager loan 2-12 intact, No motor deficit, No sensory deficit, Normal speech Eye Opening: Spontaneous Motor: Obeys Commands Verbal: Oriented GCS Score: 15 - Psych Psych: Normal mood, Normal affect Results - Vitals Vitals: Vital Signs - 24 hr 08/06/19 09:09 Temperature 36.5 C Heart Rate 58 L Respiratory 17 Rate Blood Pressure 140/69 H O2 Saturation 96 Oxygen O2 Source Room air PD MEDICAL DECISION MAKING - ED course Complexity details: reviewed results, re-evaluated patient, considered differential, d/w patient ED course: 83 y/o male with paronychia to the left thumb has worsening despite not treating his infection (he did not fill the script for the mupirocin ) He is given IM rocephin and we will place him on some septra. Departure - Departure Disposition: 01 Home, Self Care Clinical Impression: Paronychia Condition: Stable Instructions: ED Fingernail Infec Follow-Up: Fabrizio Thorne MD [Primary Care Provider] - Prescriptions: Sulfamethoxazole/Trimethoprim [Sulfamethoxazole-Tmp Ds Tablet] 1 each PO BID #14 tablet
== END 2019-08-06 10:01 | disposition home or self-care (01) ==
LOC: ED 08:54
DX: I10 Essential (primary) hypertension (principal); L03.012 Cellulitis of left finger
CPT/HCPCS: 99282; 99283

== ENCOUNTER 2020-02-02 08:00 | Outpatient (CLI) | payer MEDICARE, OTHER ==
[2020-02-02 12:14] LABS: BASOPHILS # (AUTO) 0.1 10^3/uL (0.0-0.1); BASOPHILS % (AUTO) 0.5 %; EOSINOPHILS # (AUTO) 0.2 10^3/uL (0.0-0.7); EOSINOPHILS % (AUTO) 1.6 %; HGB - HEMOGLOBIN 15.7 g/dL (14.0-18.0); LYMPHOCYTES # (AUTO) 1.9 10^3/uL (1.5-3.5); LYMPHOCYTES % (AUTO) 20.4 %; MEAN CORPUSCULAR HEMOGLOBIN 29.2 pg (27.0-31.0); MEAN CORPUSCULAR HGB CONC 31.8 g/dL (32.0-36.0); MEAN PLATELET VOLUME 9.6 fL (7.4-11.4); MONOCYTES # (AUTO) 0.7 10^3/uL (0.0-1.0); MONOCYTES % (AUTO) 7.9 %; NEUTROPHILS # (AUTO) 6.3 10^3/uL (1.5-6.6); NEUTROPHILS % (AUTO) 69.2 %; PLT - PLATELET COUNT 390 10^3/uL (130-450); RED BLOOD COUNT 5.37 10^6/uL (4.70-6.10); RED CELL DISTRIBUTION WIDTH 13.9 % (12.0-15.0); WHITE BLOOD COUNT 9.2 x10^3/uL (4.8-10.8)
[2020-02-02 12:35] LABS: CALCIUM 8.9 mg/dL (8.5-10.3); CARBON DIOXIDE - CO2 23 mmol/L (21-32); CHLORIDE 106 mmol/L (101-111); GLUCOSE 102 mg/dL (70-100); SODIUM 136 mmol/L (135-145)
[2020-02-02 12:58] LABS: ALBUMIN 4.3 g/dL (3.2-5.5); ALBUMIN/GLOBULIN RATIO 1.5 (1.0-2.2); ALKALINE PHOSPHATASE 62 IU/L (42-121); ALT ALANINE AMINOTRANSFERASE 20 IU/L (10-60); AST ASPARTATE AMINOTRANSFERASE 21 IU/L (10-42); BILIRUBIN,TOTAL 0.6 mg/dL (0.2-1.0); BUN - BLOOD UREA NITROGEN 20 mg/dL (6-20); CHOL/HDL RATIO 2.7 (<5.0); CHOLESTEROL 156 mg/dL; CREATININE 1.1 mg/dL (0.6-1.2); HDL CHOLESTEROL 57 mg/dL; LDL CHOLESTEROL,CALCULATED 77 mg/dL; LDL/HDL RATIO 1.4 (<3.6); TOTAL PROTEIN 7.2 g/dL (6.7-8.2); VLDL CHOLESTEROL 22 mg/dL
== END 2020-02-02 23:59 | disposition home or self-care (01) ==
LOC: LAB.WCP 08:00
PROVIDERS: ATTEND Family Medicine
DX: I25.10 Atherosclerotic heart disease of native coronary artery without angina pectoris (principal); I10 Essential (primary) hypertension; E78.5 Hyperlipidemia, unspecified
CPT/HCPCS: 36415; 80053; 80061; 83721; 84443; 85025

== ENCOUNTER 2021-04-05 08:01 | Outpatient (CLI) | payer MEDICARE, OTHER ==
[2021-04-05 13:04] LABS: BASOPHILS # (AUTO) 0.1 10^3/uL (0.0-0.1); BASOPHILS % (AUTO) 0.7 %; EOSINOPHILS # (AUTO) 0.2 10^3/uL (0.0-0.7); EOSINOPHILS % (AUTO) 2.2 %; HCT - HEMATOCRIT 48.7 % (42.0-52.0); HGB - HEMOGLOBIN 15.5 g/dL (14.0-18.0); LYMPHOCYTES # (AUTO) 1.5 10^3/uL (1.5-3.5); MEAN CORPUSCULAR HEMOGLOBIN 29.9 pg (27.0-31.0); MEAN CORPUSCULAR HGB CONC 31.8 g/dL (32.0-36.0); MEAN CORPUSCULAR VOLUME 93.8 fL (80.0-94.0); MEAN PLATELET VOLUME 9.6 fL (7.4-11.4); MONOCYTES # (AUTO) 0.8 10^3/uL (0.0-1.0); MONOCYTES % (AUTO) 10.2 %; NEUTROPHILS # (AUTO) 4.9 10^3/uL (1.5-6.6); NEUTROPHILS % (AUTO) 66.4 %; PLT - PLATELET COUNT 374 10^3/uL (130-450); RED BLOOD COUNT 5.19 10^6/uL (4.70-6.10); RED CELL DISTRIBUTION WIDTH 14.2 % (12.0-15.0); WHITE BLOOD COUNT 7.4 x10^3/uL (4.8-10.8)
[2021-04-05 13:45] LABS: ALBUMIN 4.2 g/dL (3.2-5.5); ALBUMIN/GLOBULIN RATIO 1.6 (1.0-2.2); ALKALINE PHOSPHATASE 59 IU/L (42-121); ALT ALANINE AMINOTRANSFERASE 21 IU/L (10-60); AST ASPARTATE AMINOTRANSFERASE 21 IU/L (10-42); BILIRUBIN,TOTAL 0.7 mg/dL (0.2-1.0); BUN - BLOOD UREA NITROGEN 23 mg/dL (6-20); CALCIUM 9.3 mg/dL (8.5-10.3); CARBON DIOXIDE - CO2 26 mmol/L (21-32); CHLORIDE 106 mmol/L (101-111); CHOLESTEROL 149 mg/dL; CREATININE 1.2 mg/dL (0.6-1.2); GFR - MDRD 58 (>89); GLUCOSE 105 mg/dL (70-100); HDL CHOLESTEROL 50 mg/dL; LDL CHOLESTEROL,CALCULATED 90 mg/dL; LDL/HDL RATIO 1.8 (<3.6); POTASSIUM 4.5 mmol/L (3.5-5.0); SODIUM 139 mmol/L (135-145); TOTAL PROTEIN 6.9 g/dL (6.7-8.2); TRIGLYCERIDES 44 mg/dL; VLDL CHOLESTEROL 9 mg/dL
[2021-04-05 13:55] LABS: THYROID STIMULATING HORMONE 2.97 uIU/mL (0.34-5.60)
== END 2021-04-05 23:59 | disposition home or self-care (01) ==
LOC: LAB.WCP 08:01
PROVIDERS: ATTEND Nurse Practitioner Family
DX: I12.9 Hypertensive chronic kidney disease with stage 1 through stage 4 chronic kidney disease, or unspecified chronic kidney disease (principal); N18.9 Chronic kidney disease, unspecified; E78.5 Hyperlipidemia, unspecified
CPT/HCPCS: 36415; 80053; 80061; 83721; 84443; 85025

== ENCOUNTER 2022-04-19 07:35 | Outpatient (CLI) | payer MEDICARE, OTHER ==
[2022-04-19 11:43] LABS: BASOPHILS # (AUTO) 0.1 10^3/uL (0.0-0.1); BASOPHILS % (AUTO) 0.6 %; EOSINOPHILS # (AUTO) 0.2 10^3/uL (0.0-0.7); HCT - HEMATOCRIT 49.2 % (42.0-52.0); HGB - HEMOGLOBIN 15.9 g/dL (14.0-18.0); LYMPHOCYTES # (AUTO) 1.5 10^3/uL (1.5-3.5); LYMPHOCYTES % (AUTO) 18.7 %; MEAN CORPUSCULAR HEMOGLOBIN 29.8 pg (27.0-31.0); MEAN CORPUSCULAR HGB CONC 32.3 g/dL (32.0-36.0); MEAN CORPUSCULAR VOLUME 92.3 fL (80.0-94.0); MEAN PLATELET VOLUME 9.3 fL (7.4-11.4); MONOCYTES # (AUTO) 0.6 10^3/uL (0.0-1.0); MONOCYTES % (AUTO) 7.7 %; NEUTROPHILS # (AUTO) 5.6 10^3/uL (1.5-6.6); NEUTROPHILS % (AUTO) 70.6 %; PLT - PLATELET COUNT 438 10^3/uL (130-450); RED BLOOD COUNT 5.33 10^6/uL (4.70-6.10); RED CELL DISTRIBUTION WIDTH 14.2 % (12.0-15.0)
[2022-04-19 11:48] LABS: ALBUMIN 4.1 g/dL (3.2-5.5); ALBUMIN/GLOBULIN RATIO 1.4 (1.0-2.2); ALKALINE PHOSPHATASE 68 IU/L (42-121); ALT ALANINE AMINOTRANSFERASE 19 IU/L (10-60); AST ASPARTATE AMINOTRANSFERASE 22 IU/L (10-42); BILIRUBIN,TOTAL 0.6 mg/dL (0.2-1.0); BUN - BLOOD UREA NITROGEN 20 mg/dL (6-20); CALCIUM 9.4 mg/dL (8.5-10.3); CARBON DIOXIDE - CO2 29 mmol/L (21-32); CHLORIDE 102 mmol/L (101-111); CHOL/HDL RATIO 2.8 (<5.0); CHOLESTEROL 172 mg/dL; CREATININE 1.2 mg/dL (0.6-1.2); ESTIMATED AVERAGE GLUCOSE 120 mg/dL (70-100); GFR - MDRD 58 (>89); GLUCOSE 96 mg/dL (70-100); HDL CHOLESTEROL 62 mg/dL; HEMOGLOBIN A1c% 5.8 % (4.27-6.07); LDL CHOLESTEROL,CALCULATED 92 mg/dL; LDL/HDL RATIO 1.5 (<3.6); POTASSIUM 4.6 mmol/L (3.5-5.0); SODIUM 137 mmol/L (135-145); TOTAL PROTEIN 7.1 g/dL (6.7-8.2); TRIGLYCERIDES 88 mg/dL; VLDL CHOLESTEROL 18 mg/dL
[2022-04-19 11:57] LABS: THYROID STIMULATING HORMONE 5.49 uIU/mL (0.34-5.60)
== END 2022-04-19 07:36 | disposition home or self-care (01) ==
LOC: LAB.N 07:35
PROVIDERS: ATTEND Physician Assistant
DX: I10 Essential (primary) hypertension (principal); E78.5 Hyperlipidemia, unspecified; R73.01 Impaired fasting glucose; Z12.5 Encounter for screening for malignant neoplasm of prostate
CPT/HCPCS: 36415; 80053; 80061; 83036; 84443; 85025; G0103; 83721; 84153

== ENCOUNTER 2022-09-24 08:46 | Emergency (ER) | payer MEDICARE, OTHER ==
[2022-09-24 09:08] VITALS: BP 134/60
--- NOTE | 2022-09-24 09:45 | ED Physician Documentation ---
PD HPI URI - Stated complaint Stated Complaint: COUGH/RIB PX - Chief complaint Chief Complaint: Resp - History obtained from History obtained from: Patient - History of Present Illness Timing - onset: How many days ago (has been ill with cough and feverish for a week. tested positive for influenza A 5 days ago. he is feeling improved without fever and less cough yesteday and today. Some left chest pain with coughing. his is having tavr tomorrow and he wants to be sure he is safe to be in hospital/pre-op/etc.) Timing details: Gradual onset, Still present (much improved the past 2 days.) Associated symptoms: Chest pain (left anterior with coughing.) Contributing factors: No: Travel, Unimmunized, COPD / asthma Recently seen: Clinic (5 days ago and had positive flu a test.) Review of Systems Constitutional: reports: Fever (resolved since yesterday), Chills Nose: reports: Congestion Respiratory: reports: Cough GI: denies: Vomiting, Diarrhea Skin: denies: Rash Neurologic: denies: Altered mental status, Headache PD PAST MEDICAL HISTORY - Past Medical History Cardiovascular: Hypertension, High cholesterol, Coronary artery disease, Atrial fibrillation Respiratory: None, Sleep apnea Neuro: None Endocrine/Autoimmune: None GI: Colon polyps : Benign prostate hypertrophy, Other HEENT: Chronic hearing loss, Other Psych: Claustrophobia Musculoskeletal: Osteoarthritis, Chronic back pain Derm: None, Other - Past Surgical History Past Surgical History: Yes General: Cholecystectomy, Appendectomy, Hiatal hernia repair, Colonoscopy, Other Ortho: Rotator cuff repair, Shoulder arthroplasty, Other Cardiovascular: CABG, Coronary stent, Angioplasty HEENT: Cataracts Derm: Other - Present Medications Home Medications: Ambulatory Orders Medication Instructions Recorded Confirmed Aspirin 81 mg PO QAM 09/03/13 12/26/18 Multivit-Min/Iron/Folic/Vit K1 1 each PO QAM 09/03/13 12/26/18 [Centrum Chewable Tablet] Acetaminophen [Tylenol] 650 mg PO Q6H PRN 07/28/14 12/26/18 atenoloL [Atenolol] 20 mg PO DAILY 07/28/14 12/26/18 Cetirizine [ZyrTEC] 20 mg PO DAILY 01/26/16 12/26/18 Ipratropium [place] 0.03 mg IH QID 01/26/16 12/26/18 Simvastatin 40 mg PO DAILY 01/26/16 12/25/18 Mupirocin Calcium [Mupirocin] 15 gm TP TID 7 Days #1 cream..g. 08/05/19 Sulfamethoxazole/Trimethoprim 1 each PO BID #14 tablet 08/06/19 [Sulfamethoxazole-Tmp Ds Tablet] - Allergies Allergies/Adverse Reactions: Allergies Allergy/AdvReac Type Severity Reaction Status Date / Time ciprofloxacin Allergy FLUSHING/RA Verified 09/24/22 09:08 SH NSAIDS (Non-Steroidal Allergy KIDNEY Verified 09/24/22 09:08 Anti-Inflamma FAILURE naproxen sodium * AdvReac Severe Hives Verified 09/24/22 09:08 [From Aleve] prednisone AdvReac Severe Hallucinati Verified 09/24/22 09:08 ons Penicillins AdvReac Rash Verified 09/24/22 09:08 CHG 2% AdvReac Rash Uncoded 09/24/22 09:08 - Social History Does the pt smoke?: Yes Smoking Status: Current every day smoker Does the pt drink ETOH?: No Does the pt have substance abuse?: No - Immunizations Immunizations are current?: Yes - POLST Patient has POLST: No PD ED PE NORMAL - Vitals Vital signs reviewed: Yes - General General: Alert and oriented X 3, No acute distress, Well developed/nourished - HEENT HEENT: Moist mucous membranes, Pharynx benign, Other (hard of hearing.) - Neck Neck: Supple, no meningeal sign, No adenopathy - Cardiac Cardiac: RRR, No murmur - Respiratory Respiratory: Clear bilaterally - Abdomen Abdomen: Soft, Non tender - Derm Derm: Normal color, Warm and dry - Extremities Extremities: No edema, No calf tenderness / cord - Neuro Neuro: Alert and oriented X 3, No motor deficit, Normal speech Results - Vitals Vitals: Vital Signs - 24 hr 09/24/22 09:03 Temperature 36.0 C L Heart Rate 79 Respiratory 16 Rate Blood Pressure 134/60 H O2 Saturation 96 Oxygen O2 Source Room air - Labs Labs: Laboratory Tests 09/24/22 10:02 Influenza A (Rapid) Negative Influenza B (Rapid) Negative PD MEDICAL DECISION MAKING - ED course Complexity details: reviewed results, considered differential (his symptoms have improved a lot and has not had fevers for 1-2 days. Current flu test is negative. I think he should be clearable to be with his for her surgery tomorrow (in family waiting room).), d/w patient Departure - Departure Disposition: 01 Home, Self Care Clinical Impression: Upper respiratory infection Condition: Stable Record reviewed to determine appropriate education?: Yes Follow-Up: Emily Mak PA [Primary Care Provider] - Comments: Your flu test is now negative and your symptoms are improving so it seems like you are now less contagious/not contagious and I would anticipate you being able to be with your for her surgery tomorrow. Ultimately its up to the cardiac surgeon and rubber stamps and dies supervisor. Forms: Activity restrictions Discharge Date/Time: 09/24/22 10:41
== END 2022-09-24 10:41 | disposition home or self-care (01) ==
LOC: ED 08:46
DX: J06.9 Acute upper respiratory infection, unspecified (principal); I10 Essential (primary) hypertension; F17.200 Nicotine dependence, unspecified, uncomplicated
CPT/HCPCS: 87275; 87276; 99282; 99283

== ENCOUNTER 2023-10-11 07:08 | Outpatient (CLI) | payer MEDICARE, OTHER ==
[2023-10-11 11:55] LABS: BASOPHILS # (AUTO) 0.1 10^3/uL (0.0-0.1); BASOPHILS % (AUTO) 0.7 %; EOSINOPHILS # (AUTO) 0.3 10^3/uL (0.0-0.7); EOSINOPHILS % (AUTO) 4.5 %; HCT - HEMATOCRIT 49.2 % (42.0-52.0); HGB - HEMOGLOBIN 15.4 g/dL (14.0-18.0); LYMPHOCYTES # (AUTO) 1.6 10^3/uL (1.5-3.5); LYMPHOCYTES % (AUTO) 22.5 %; MEAN CORPUSCULAR HEMOGLOBIN 29.4 pg (27.0-31.0); MEAN CORPUSCULAR HGB CONC 31.3 g/dL (32.0-36.0); MEAN CORPUSCULAR VOLUME 94.1 fL (80.0-94.0); MEAN PLATELET VOLUME 9.2 fL (7.4-11.4); MONOCYTES # (AUTO) 0.8 10^3/uL (0.0-1.0); MONOCYTES % (AUTO) 10.6 %; NEUTROPHILS # (AUTO) 4.4 10^3/uL (1.5-6.6); NEUTROPHILS % (AUTO) 61.3 %; PLT - PLATELET COUNT 407 10^3/uL (130-450); RED BLOOD COUNT 5.23 10^6/uL (4.70-6.10); WHITE BLOOD COUNT 7.1 x10^3/uL (4.8-10.8)
[2023-10-11 12:09] LABS: ALBUMIN 4.2 g/dL (3.2-5.5); ALBUMIN/GLOBULIN RATIO 1.6 (1.0-2.2); ALKALINE PHOSPHATASE 59 IU/L (42-121); ALT ALANINE AMINOTRANSFERASE 15 IU/L (10-60); AST ASPARTATE AMINOTRANSFERASE 15 IU/L (10-42); BILIRUBIN,TOTAL 0.5 mg/dL (0.2-1.0); BUN - BLOOD UREA NITROGEN 28 mg/dL (6-20); CALCIUM 9.4 mg/dL (8.5-10.3); CARBON DIOXIDE - CO2 28 mmol/L (21-32); CHLORIDE 105 mmol/L (101-111); CHOL/HDL RATIO 3.1 (<5.0); CHOLESTEROL 180 mg/dL; CREATININE 1.5 mg/dL (0.6-1.3); GFR - MDRD 44 (>89); GLUCOSE 95 mg/dL (74-104); HDL CHOLESTEROL 58 mg/dL; LDL CHOLESTEROL,CALCULATED 99 mg/dL; LDL/HDL RATIO 1.7 (<3.6); POTASSIUM 4.8 mmol/L (3.5-4.5); SODIUM 136 mmol/L (135-145); TOTAL PROTEIN 6.8 g/dL (6.4-8.9); TRIGLYCERIDES 115 mg/dL (48-352); VLDL CHOLESTEROL 23 mg/dL
[2023-10-11 12:28] LABS: THYROID STIMULATING HORMONE 3.89 uIU/mL (0.34-5.60)
== END 2023-10-11 07:09 | disposition home or self-care (01) ==
LOC: LAB.N 07:08
PROVIDERS: ATTEND Physician Assistant
DX: I10 Essential (primary) hypertension (principal); E78.5 Hyperlipidemia, unspecified; Z12.5 Encounter for screening for malignant neoplasm of prostate
CPT/HCPCS: 36415; 80053; 80061; 84443; 85025; G0103; 83721; 84153

== ENCOUNTER 2023-11-29 07:04 | Outpatient (CLI) | payer MEDICARE, OTHER ==
[2023-11-29 12:06] LABS: CALCIUM 9.2 mg/dL (8.5-10.3); CREATININE 1.2 mg/dL (0.6-1.3); POTASSIUM 4.3 mmol/L (3.5-4.5)
== END 2023-11-29 07:05 | disposition home or self-care (01) ==
LOC: LAB.N 07:04
PROVIDERS: ATTEND Physician Assistant
DX: R94.4 Abnormal results of kidney function studies (principal)
CPT/HCPCS: 36415; 80048

== ENCOUNTER 2024-02-13 08:45 | Outpatient (CLI) | payer MEDICARE, OTHER | END 2024-02-13 08:46 | disposition home or self-care (01) | LOC: DI 08:45 | PROVIDERS: ATTEND Internal Medicine Cardiovascular Disease | DX: R06.09 Other forms of dyspnea (principal) | CPT/HCPCS: 93307 ==

== ENCOUNTER 2024-02-15 08:09 | Outpatient (CLI) | payer MEDICARE, OTHER ==
--- NOTE | 2024-02-15 09:04 | XRAY Report ---
PROCEDURE: Chest 2V INDICATIONS: DYSPNEA ON EXERTION TECHNIQUE: 2 views of the chest were acquired. COMPARISON: 01/06/2017. FINDINGS: Surgical changes and devices: Median sternotomy wires. Surgical clips projecting over the mediastinu m.. Lungs and pleura: No pleural effusions or pneumothorax. Lungs are clear. Mediastinum: Mediastinal contours appear normal. Heart size is normal. Bones and chest wall: No suspicious bony lesions. Overlying soft tissues appear unremarkable. IMPRESSION: No acute cardiopulmonary process. Reviewed by: Karthikeyan Braun MD on 02/15/2024 9:03 AM PDT Approved by: Karthikeyan Braun MD on 02/15/2024 9:03 AM PDT Station ID: [id number]
== END 2024-02-15 08:10 | disposition home or self-care (01) ==
LOC: DI 08:09
PROVIDERS: ATTEND Internal Medicine Cardiovascular Disease
DX: R06.09 Other forms of dyspnea (principal)

== ENCOUNTER 2024-03-04 09:27 | Outpatient (CLI) | payer MEDICARE, OTHER ==
[2024-03-04 12:15] LABS: HCT - HEMATOCRIT 48.6 % (42.0-52.0); HGB - HEMOGLOBIN 15.1 g/dL (14.0-18.0); MEAN CORPUSCULAR HEMOGLOBIN 29.2 pg (27.0-31.0); MEAN CORPUSCULAR HGB CONC 31.1 g/dL (32.0-36.0); MEAN CORPUSCULAR VOLUME 93.8 fL (80.0-94.0); MEAN PLATELET VOLUME 9.1 fL (7.4-11.4); RED BLOOD COUNT 5.18 10^6/uL (4.70-6.10); RED CELL DISTRIBUTION WIDTH 14.1 % (12.0-15.0); WHITE BLOOD COUNT 7.3 x10^3/uL (4.8-10.8)
== END 2024-03-04 09:28 | disposition home or self-care (01) ==
LOC: LAB.N 09:27
PROVIDERS: ATTEND Internal Medicine Cardiovascular Disease
DX: I25.10 Atherosclerotic heart disease of native coronary artery without angina pectoris (principal)
CPT/HCPCS: 36415; 83721; 85027

== ENCOUNTER 2024-03-15 08:00 | Outpatient (CLI) | payer MEDICARE, OTHER | END 2024-03-15 08:01 | disposition home or self-care (01) | LOC: LAB.N 08:00 | PROVIDERS: ATTEND Physician Assistant Medical | DX: R05.1 Acute cough (principal) ==

== ENCOUNTER 2024-06-23 07:32 | Outpatient (CLI) | payer MEDICARE, OTHER ==
[2024-06-23 14:06] LABS: ALBUMIN 3.9 g/dL (3.2-5.5); ALBUMIN/GLOBULIN RATIO 1.5 (1.0-2.2); ALKALINE PHOSPHATASE 66 IU/L (42-121); ALT ALANINE AMINOTRANSFERASE 17 IU/L (10-60); AST ASPARTATE AMINOTRANSFERASE 14 IU/L (10-42); BILIRUBIN,TOTAL 0.5 mg/dL (0.2-1.0); BUN - BLOOD UREA NITROGEN 18 mg/dL (6-20); CALCIUM 8.9 mg/dL (8.5-10.3); CARBON DIOXIDE - CO2 27 mmol/L (21-32); CHLORIDE 107 mmol/L (101-111); CHOL/HDL RATIO 2.7 (<5.0); CHOLESTEROL 163 mg/dL; CREATININE 1.1 mg/dL (0.6-1.3); GFR - MDRD 63 (>89); GLUCOSE 98 mg/dL (74-104); HDL CHOLESTEROL 60 mg/dL; LDL CHOLESTEROL,CALCULATED 86 mg/dL; LDL/HDL RATIO 1.4 (<3.6); POTASSIUM 4.6 mmol/L (3.5-4.5); SODIUM 137 mmol/L (135-145); TOTAL PROTEIN 6.5 g/dL (6.4-8.9); TRIGLYCERIDES 84 mg/dL; VLDL CHOLESTEROL 17 mg/dL
[2024-06-23 14:40] LABS: BASOPHILS # (AUTO) 0.1 10^3/uL (0.0-0.1); BASOPHILS % (AUTO) 0.6 %; EOSINOPHILS # (AUTO) 0.3 10^3/uL (0.0-0.7); EOSINOPHILS % (AUTO) 3.6 %; HCT - HEMATOCRIT 48.8 % (42.0-52.0); HGB - HEMOGLOBIN 15.6 g/dL (14.0-18.0); LYMPHOCYTES # (AUTO) 1.6 10^3/uL (1.5-3.5); LYMPHOCYTES % (AUTO) 20.5 %; MEAN CORPUSCULAR HEMOGLOBIN 29.8 pg (27.0-31.0); MEAN CORPUSCULAR VOLUME 93.3 fL (80.0-94.0); MEAN PLATELET VOLUME 9.1 fL (7.4-11.4); MONOCYTES # (AUTO) 0.6 10^3/uL (0.0-1.0); MONOCYTES % (AUTO) 8.1 %; NEUTROPHILS # (AUTO) 5.2 10^3/uL (1.5-6.6); NEUTROPHILS % (AUTO) 66.6 %; PLT - PLATELET COUNT 436 10^3/uL (130-450); RED BLOOD COUNT 5.23 10^6/uL (4.70-6.10); RED CELL DISTRIBUTION WIDTH 14.6 % (12.0-15.0); WHITE BLOOD COUNT 7.8 x10^3/uL (4.8-10.8)
[2024-06-23 14:51] LABS: THYROID STIMULATING HORMONE 5.04 uIU/mL (0.34-5.60)
== END 2024-06-23 07:33 | disposition home or self-care (01) ==
LOC: LAB.N 07:32
PROVIDERS: ATTEND Physician Assistant
DX: N18.31 Chronic kidney disease, stage 3a (principal); I25.10 Atherosclerotic heart disease of native coronary artery without angina pectoris
CPT/HCPCS: 36415; 80053; 80061; 83721; 84443; 85025